=== PATIENT | female | born 1995 | race Caucasian/White ===

== ENCOUNTER 2016-12-16 18:44 | Emergency (ER) | payer OTHER ==
[~2016-12-16] VITALS: Ht 160 cm; Wt 49.1 kg
[2016-12-16 19:00] VITALS: BP 117/73; PULSE 61; RESP 16; O2SAT 99
--- NOTE | 2016-12-16 19:50 | ED.REPORT ---
HPI-Preg Under 20 Weeks Date of Service Dec 16, 2016 ED Provider: Winnie Curran MD Pt is a 21 y.o. female who is approx. 9 weeks presents to the ED c/o abnormal vaginal bleeding onset today. She reports having light spotting several days ago. She claims that today she had gradually worsening vaginal bleeding, only using 1 pad today. She denies associated abdominal/pelvic pain and cramping, nausea, and vomiting. She reports having a spontaneous in August at around 5-6 weeks gestation. Nursing Notes Stated Complaint: /BLEEDING Chief Complaint: Female Abdominal Pain Nursing Notes Reviewed: Yes Allergies: Coded Allergies: cinnamon (Verified Allergy, Intermediate, 12/16/16) General Time Seen by Provider: 19:49 Chief Complaint Vaginal bleeding Context: : Known 1st trim Hx Obtained From: Patient Arrived By: Walk-in Onset Occurred: 9 - 12 hours ago Symptom Duration: Waxes and wanes Severity: Current: No pain currently Severity: Maximum: No pain Past Medical History Past Medical History Healthy Past Surgical History None reported Ambulatory Status Independent Review of Systems GI: Denies: Abdominal pain, Nausea, Vomiting Female: Reports: , Vaginal bleeding - abnl, Denies: Pelvic pain Complete sys rev & neg: except as marked. Physical Exam Initial Vital Signs Vital Signs (First) Date Time Temp Pulse Resp B/P Pulse Ox O2 Delivery O2 Flow Rate FiO2 12/16/16 19:00 36.6 61 16 117/73 99 Room Air Initial VS: Reviewed Head / Eyes: Atraumatic, Normocephalic, PERRL Extremities: Vascular intact, Neuro intact Skin: Warm, Dry, No cyanosis Neurologic: Alert, Oriented, Nonfocal Psychiatric: Mood/affect normal, Behavior normal, Normal thought content General/Constitutional: Awake, Alert, No acute distress, Well appearing, Well developed, Well hydrated, Well nourished, Not toxic appearing Abdomen: Atraumatic, Soft, Non-tender, No guarding, No rebound, No distention Female Genitourinary: Director Skills present, Os closed, No adnexal mass, No adnexal tenderness Moderate dark blood present in vault : Exam deferred Respiratory / Chest: Atraumatic, Breath sounds NL, Breath sounds = bilat, No respiratory distress Cardiovascular: Heart rate NL, Regular rhythm, Heart sounds NL Interpretation & Diagnostics Lab Results Interpretation Result Diagram: 12/16/16201912/16/162019 Test 12/16/16 19:40 12/16/16 20:20 Urine Color Yellow (YELLOW) Urine Appearance Clear (CLEAR,HAZY) Urine pH 7.5 (5.0-8.0) Urine Specific [place] 1.020 (1.003-1.035) Urine Protein Negativemg/dL (NEG,TRACE) Urine Glucose (UA) Negativemg/dL (NEGATIVE) Urine Ketones Negativemg/dL (NEGATIVE) Urine Occult Blood Large (NEGATIVE) Urine Nitrite Negative (NEGATIVE) Urine Bilirubin Negative (NEGATIVE) Urine Urobilinogen Normalmg/dL (NORMAL) Urine Leukocyte Esterase Trace (NEGATIVE) Urine RBC 3-10/hpf (0-2) Urine WBC 0-5/hpf (0-5) Urine Epithelial Cells Few/hpf (NONE-MOD) Urine Crystals None seen (NONE SEEN) Urine Bacteria Few/hpf (NONE-FEW) Urine Hyaline Casts None/lpf (NONE) Urine Granular Casts None seen (NONE SEEN) Urine Waxy Casts None seen (NONE SEEN) Urine Red Blood Cell Casts None seen (NONE SEEN) Urine White Blood Cell Casts None seen (NONE SEEN) Urine Mucus None seen (None Seen) Urine Trichomonas None seen (NONE SEEN) Urine Yeast None (NONE SEEN) Urinalysis Comment None Urine Culture Reflexed Indicated White Blood Count 7.5th/mm3 (3.8-10.1) Red Blood Count 4.36mil/mm3 (3.90-5.20) Hemoglobin 13.1g/dL (12.0-15.6) Hematocrit 38.0% (35.0-46.0) Mean Corpuscular Volume 87.2fL (81-100) Mean Corpuscular Hemoglobin 30.0pg (27.0-35.0) Mean Corpuscular Hemoglobin Concent 34.5% (32.0-37.0) Red Cell Distribution Width 13.2% (12.3-15.4) Platelet Count 238bil/L (150-400) Sodium Level 138mEq/L (134-144) Potassium Level 3.5mEq/L (3.5-5.2) Chloride Level 101mEq/L (97-108) Carbon Dioxide Level 20mmol/L (18-29) Blood Urea Nitrogen 9mg/dL (6-20) Creatinine 0.55mg/dL (0.57-1.00) Estimat Glomerular Filtration Rate 196mL/min (>59) Glucose Level 90mg/dL (60-99) Calcium Level 9.4mg/dL (8.5-10.1) Total Bilirubin 0.6mg/dL (0.0-1.2) Aspartate Amino Transf (AST/SGOT) 15U/L (0-50) Alanine Aminotransferase (ALT/SGPT) 17U/L (0-32) Alkaline Phosphatase 61U/L (25-150) Total Protein 7.2g/dL (6.4-8.4) Albumin 4.4g/dL (3.4-5.0) HCG Beta Subunit 8629mIU/mL Hold Felipe Top Tube Received (Received) US Focused OB IMPRESSION: 1. pole measuring 8 weeks 2 days is discordant with expected measurements of 9 weeks 4 days. In addition no cardiovascular activity is seen with M-mode. This is seen with 100% of the time in this age group endovaginally. Therefore spontaneous demise/AB is thought to be beginning. Dictated by: Jone Saldivar M.D. on 12/16/2016 at 21:59 Approved by: Jone Saldivar M.D. on 12/16/2016 at 22:03 Re-Eval/Medical Decision Med Decision/Clinical Course 21-year-old here with vaginal bleeding at approximately 10 weeks . Differential diagnosis includes but is not limited to missed versus inevitable versus early miscarriage versus subchorionic hemorrhage. CBC and CMP are unremarkable. Beta Quant is 8600. Patient's transvaginal ultrasound showed a gestational sac smaller than expected age, and no heart tones, leading me to believe she is in process of having a miscarriage. She will follow up Sunday with her primary care physician. She has been given very strict return precautions and is amenable to discharge at this time. Source of Hx: Old records Re-Evaluation/Progress #1: Time of Eval: 20:38 Re-Evaluation/Progress Note: Pt rechecked. exam performed, torpedo specialist present. Re-Evaluation/Progress #2: Time of Eval: 22:04 Re-Evaluation/Progress Note: Pt rechecked. Discussed plan for discharge, pt understands and agrees with plan. Counseled Regarding: Diagnosis, Lab results, Need for follow-up, When/why to return to ED Discharge & Departure Primary Impression: Threatened miscarriage in early Disposition: Home Discharge Condition All VS Reviewed: Yes Condition: No Change Patient Instructions: Spontaneous Miscarriage (ED) Additional Instructions: Thank you for entrusting us with your care today. Unfortunately your ultrasound did not show any heart tones and you are most likely having a miscarriage. I expect that you will have increased vaginal bleeding and may begin passing blood clots. You also may begin to experience cramping. Call your ICT TRAINER on Sunday for a same day appointment, let them know you were seen in the Emergency Department. Your HCG was 8629. Seek care if you experience severe vaginal bleeding or any new or worsening symptoms. Referrals: Enriqueta Cunningham (PCP) Mitzi Attestation Portions of this note were transcribed by Eliel Prater. I, Dr. Curran personally performed the history, physical exam and medical decision-making; I reviewed and confirmed the accuracy of the information in the transcribed note. Signed by : Mitzi Mercado, 12/16/16 and 2208 copies to: Enriqueta Cunningham Rebecca A MD Dec 16, 2016 19:50 ELIEL PRATER Dec 16, 2016 19:58
[2016-12-16 20:38] LABS: APPEARANCE,URINE CLEAR (CLEAR,HAZY); COLOR,URINE YELLOW (YELLOW); OCCULT BLOOD,URINE LARGE (NEGATIVE); PH,URINE 7.5 (5.0-8.0); UROBILINOGEN,URINE NORMAL (NORMAL)
[2016-12-16 20:51] LABS: Mean Corpuscular Volume 87.2 fL (81-100)
--- NOTE | 2016-12-16 22:04 | DRSVH ---
PROCEDURE: US OB<14 WKS+OB TRANSVAG INDICATIONS: preg vag bled OUTSIDE/PRIOR DATING DATA: Last menstrual period (LMP): 10/03/16. LMP-based estimated date of delivery (MARGARETTE): 07/10/17. First dating scan (date and location): 11/24/16. Estimated date of delivery (MARGARETTE) from first dating scan: 07/17/17. TECHNIQUE: Real-time scanning was performed of the fetus and maternal pelvic organs, with image documentation. Endovaginal scanning was also performed to better visualize the fetus and maternal ovaries. COMPARISON: None. FINDINGS: Embryo: OB-SEARCHLIGHT OPERATOR Ultrasound Procedure Report Early Gestation [employer] [place] Rump Length: 1.77 cm Gestational Age (CRL): 8 weeks, 2 days, expected measurement based on original ultras ound would be 9 weeks 4 days. Summary Fetus Summary Heart Rate: No identifiable heart rate. Comments: A normal yolk sac is noted. No perigestational bleeds. Measurement variability in dating: +/- 4 weeks by LMP, +/- 7 days by mean sac diameter (use before 6 weeks gestation if crown-rump length not able to be measured), +/- 5 days by crown-rump length (6-12 weeks gestation). Maternal organs: Ovaries suggests a corpus luteum cyst on the right ovary.. Limited images through the kidneys demonstrate no hydronephrosis. IMPRESSION: 1. pole measuring 8 weeks 2 days is discordant with expected measurements of 9 weeks 4 days. In addition no cardiovascular activity is seen with M-mode. This is seen with 100% of the time in this age group endovaginally. Therefore spontaneous demise/AB is thought to be beginning. Dictated by: Jone Saldivar M.D. on 12/16/2016 at 21:59 Approved by: Jone Saldivar M.D. on 12/16/2016 at 22:03
[2016-12-16 22:30] VITALS: BP 104/59; PULSE 66; RESP 18; O2SAT 99
== END 2016-12-16 22:33 | disposition home or self-care (01) ==
LOC: SED 18:44
DX: O20.0 Threatened abortion (principal); Z3A.09 9 weeks gestation of pregnancy; Z87.59 Personal history of other complications of pregnancy, childbirth and the puerperium

== ENCOUNTER 2016-12-18 13:20 | Emergency (ER) | payer OTHER ==
[~2016-12-18] VITALS: Ht 160 cm; Wt 49.1 kg
[2016-12-18 13:26] VITALS: BP 107/69; PULSE 69; RESP 16; O2SAT 100
--- NOTE | 2016-12-18 13:41 | ED.REPORT ---
HPI-Abd Pain F Under 40 Date of Service Dec 18, 2016 ED Provider: Doc,Ed MD The patient is an otherwise healthy female who presents to the emergency department complaining of worsening vaginal bleeding and pelvic cramping. The patient was seen in the emergency department 2 days ago for similar symptoms. During this visit they were unable to see heart tones on the ultrasound. She was discharged home and recommended to followup with her OBGYN or regular doctor. She was unable to get an appointment until Sunday. Today the bleeding became more severe. She went through one pad in about 30 minutes and then came to the emergency department. She has passed mostly clots. She does not believe she has passed any tissue. She denies fever, vomiting, lightheadedness, dizziness, chest pain or difficulty breathing. Nursing Notes Stated Complaint: ABD PAIN,VAGINAL BLEEDING Chief Complaint: Female Abdominal Pain Nursing Notes Reviewed: Yes Allergies: Coded Allergies: cinnamon (Verified Allergy, Intermediate, 12/16/16) Scheduled Cephalexin (Keflex) 500 Mg Capsule 500 MG PO QID Scheduled PRN Hydrocodone-Acetaminophen 5-325 mg (Hydrocodone-Acetaminophen 5-325 mg) 1 Each Tablet 1 TABLET PO Q4H PRN PRN For Pain Ibuprofen (Ibuprofen) 800 Mg Tablet 800 MG PO TID PRN PRN For Pain Ondansetron ODT (Zofran ODT) 4 Mg Tablet 4 MG PO Q4H PRN PRN For Nausea Ondansetron ODT (Zofran ODT) 4 Mg Tablet 4 MG PO Q4H PRN PRN For Nausea General Time Seen by MD: 13:41 Chief Complaint Vaginal bleeding Hx Obtained From: Patient Arrived By: Walk-in Sudden in Onset?: Yes Onset Occurred: 4 days ago Symptom Duration: Since onset Progression since Onset: Constant, Gradually worsening Location: : Pelvis: Suprapubic Quality: Cramping, Painful Radiation: : Does not radiate Severity: Current: Moderate Severity: Maximum: Moderate Recent Healthcare: No recent hospitalization, Recent doctor visit Similar Sx Previous: No Past Medical History Past Medical History Healthy Past Surgical History None reported Family History Noncontributory Social History Other Social History: Local resident Ambulatory Status Independent Review of Systems Constitutional: Denies: Fever Respiratory: Denies: Shortness of breath Cardiovascular: Denies: Chest pain GI: Denies: Vomiting Female: Reports: Pelvic pain, Vaginal bleeding - abnl Complete sys rev & neg: except as marked. Neurologic: Denies: Dizziness, Lightheaded Physical Exam Initial Vital Signs Vital Signs (First) Date Time Temp Pulse Resp B/P Pulse Ox O2 Delivery O2 Flow Rate FiO2 12/18/16 13:26 36.8 69 16 107/69 100 12/18/16 16:32 Room Air Initial VS: Reviewed Head / Eyes: Atraumatic, Normocephalic, PERRL ENT: Mucous membranes moist, Conjunctiva normal, No scleral icterus Neck: Supple, Non-tender, Full range of motion Lymphatic: No lymphadenopathy Extremities: Vascular intact, Neuro intact, No swelling, No tenderness Skin: Warm, Dry, No cyanosis Neurologic: Alert, Oriented, Nonfocal Psychiatric: Mood/affect normal, Behavior normal, Normal thought content General/Constitutional: Awake, Alert, No acute distress, Well appearing Respiratory / Chest: Atraumatic, Breath sounds NL, Breath sounds = bilat, No respiratory distress, No rales, No rhonchi, No wheezing Cardiovascular: Heart rate NL, Regular rhythm, Heart sounds NL, No gallop, No murmurs, No rubs, Peripheral circulation NL Abdomen: Atraumatic, Soft, Non-tender, McBurney's non-tender, No guarding, No rebound, BS normoactive, No distention, No hernia, No palpable mass Back: Inspection NL, Non-tender, No CVA tenderness Female Genitourinary: Yard Caller present, External genitalia NL, No foreign body , No lesions or rash There is blood present but no active bleeding. Interpretation & Diagnostics Lab Results Interpretation Result Diagram: 12/18/16 1425 12/18/16 1425 Test 12/18/16 14:25 12/18/16 15:47 White Blood Count 10.2th/mm3 (3.8-10.1) Red Blood Count 4.37mil/mm3 (3.90-5.20) Hemoglobin 12.9g/dL (12.0-15.6) Hematocrit 38.0% (35.0-46.0) Mean Corpuscular Volume 87.0fL (81-100) Mean Corpuscular Hemoglobin 29.5pg (27.0-35.0) Mean Corpuscular Hemoglobin Concent 33.9% (32.0-37.0) Red Cell Distribution Width 13.0% (12.3-15.4) Platelet Count 207bil/L (150-400) Sodium Level 139mEq/L (134-144) Potassium Level 4.1mEq/L (3.5-5.2) Chloride Level 105mEq/L (97-108) Carbon Dioxide Level 19mmol/L (18-29) Blood Urea Nitrogen 11mg/dL (6-20) Creatinine 0.56mg/dL (0.57-1.00) Estimat Glomerular Filtration Rate 192mL/min (>59) Glucose Level 85mg/dL (60-99) Calcium Level 8.9mg/dL (8.5-10.1) Total Bilirubin 1.5mg/dL (0.0-1.2) Aspartate Amino Transf (AST/SGOT) 17U/L (0-50) Alanine Aminotransferase (ALT/SGPT) 15U/L (0-32) Alkaline Phosphatase 52U/L (25-150) Total Protein 6.8g/dL (6.4-8.4) Albumin 4.1g/dL (3.4-5.0) HCG Beta Subunit 3852mIU/mL Hold Felipe Top Tube Received (Received) Hold Urine Received (Received) Re-Eval/Medical Decision Med Decision/Clinical Course Med Decision/Clinical Course: 21-year-old female at 10 weeks by LMP presenting with vaginal bleeding. She presented 2 days ago and had an ultrasound which showed no heart tones consistent with demise. Today with vaginal bleeding earlier today. She has no sign symptoms anemia. Her hCG is significantly decreased from hCG 2 days ago. She had no active bleeding on pelvic exam. Discussed with GREENHOUSE SUPERINTENDENT who recommended discharge home with follow-up with her TOWN CLERK on Sunday. Patient did not want methotrexate as she has had this in the past. Return precautions given if any abd pain, fevers, vag bleeding, signs/sxs anemia. Source of Hx: Old records Re-Evaluation/Progress : Time of Eval: 16:05 Re-Evaluation/Progress Note: Completed pelvic exam. Discussed plan for OBGYN consult. Consultation : Requested Call at: 16:09 Hyper[employer] Essbase Developer: Agrees with eval, Agrees with plan Note: Spoke with the on-call OBGYN. Counseled Regarding: Diagnosis, Lab results, Need for follow-up, When/why to return to ED Discharge & Departure Primary Impression: Spontaneous Additional Impression: UTI (urinary tract infection) Urinary tract infection type: site unspecified Hematuria presence: with hematuria Qualified Code: N39.0 - Urinary tract infection, site not specified Disposition: Home Discharge Condition All VS Reviewed: Yes Condition: Stable Patient Instructions: Spontaneous Miscarriage (ED) Additional Instructions: Thank you for entrusting us with your care today. I am sorry you are going through this. Keep your followup appointment with your shirring machine operator on Sunday. Use the pain and nausea medication as prescribed. Your urinalysis was also concerning for a UTI. I have written you a prescription for the antibiotic called Keflex. Please return for any worsening vaginal bleeding, fevers, abdominal pain, nausea, vomiting, lightheadedness, dizziness, chest pain , shortness of breath or any other new or concerning symptoms. Referrals: Enriqueta Cunningham (PCP) Scribe Attestation Portions of this note were transcribed by Sofi Curiel. I, Dr. Grajeda personally performed the history, physical exam and medical decision-making; I reviewed and confirmed the accuracy of the information in the transcribed note. Signed by: Mitzi Mercado, 12/18/2016 at 1620. copies to: Enriqueta Cunningham Ben M MD Dec 18, 2016 13:41 Sofi Curiel Dec 18, 2016 13:48
[2016-12-18 14:32] LABS: Mean Corpuscular Hemoglobin 29.5 pg (27.0-35.0)
[2016-12-18] MEDS ORDERED: HYDR-4003 PO (16:18)
[2016-12-18] MEDS ORDERED: CEPH-512 PO (16:18)
[2016-12-18] MEDS ORDERED: ONDA4TAB9 PO ×2 (16:18→16:19)
[2016-12-18] MEDS ORDERED: IBUP800T28 PO (16:18)
[2016-12-18 16:32] VITALS: BP 113/62; PULSE 67; RESP 15; O2SAT 99
[2016-12-18 16:33] VITALS: BP 113/62; PULSE 67; RESP 15; O2SAT 99
== END 2016-12-18 16:33 | disposition home or self-care (01) ==
LOC: SED 13:20
DX: O03.9 Complete or unspecified spontaneous abortion without complication (principal); O23.41 Unspecified infection of urinary tract in pregnancy, first trimester; Z3A.10 10 weeks gestation of pregnancy; Z91.018 Allergy to other foods